=== PATIENT | male | born 1975 ===

== ENCOUNTER 2019-07-10 06:52 | Day surgery (SDC) | payer MEDICARE, OTHER ==
[2019-07-10] MEDS ORDERED: TRIAMCINOLONE ACETONIDE 40 MG/1 ML VIAL ONE ×3 (07:05→08:20)
[2019-07-10] MEDS ORDERED: IOHEXOL-240 MG , 50 ML VIAL IV ONE (07:06)
[2019-07-10] MEDS ORDERED: TRIAMCINOLONE ACETONIDE 50 MG/5 ML VIAL ONE (07:07)
[2019-07-10 07:35] LABS: BASOPHILS # (AUTO) 0.1 K/uL (0.0-8.0); BASOPHILS % (AUTO) 1.2 % (0.0-2.0); EOSINOPHILS # (AUTO) 0.2 K/uL (0.0-0.7); EOSINOPHILS % (AUTO) 2.3 % (0.0-7.0); HEMATOCRIT 37.2 % (36.7-47.1); HEMOGLOBIN 12.3 g/dL (12.5-16.3); LYMPHOCYTES # (AUTO) 2.8 K/uL (20.0-40.0); LYMPHOCYTES % (AUTO) 35.9 % (20.5-51.5); MEAN CORPUSCULAR HEMOGLOBIN 31.1 uug (23.8-33.4); MEAN CORPUSCULAR HGB CONC 33 g/dL (32.5-36.3); MONOCYTES # (AUTO) 0.6 K/uL (2.0-10.0); MONOCYTES % (AUTO) 8.4 % (0.0-11.0); NEUTROPHILS # (AUTO) 4.1 K/uL (1.8-8.9); NEUTROPHILS % (AUTO) 52.2 % (38.5-71.5); PLATELET COUNT (AUTO) 227 K/uL (152-348); RED BLOOD CELL COUNT(AUTO) 3.96 MIL/uL (4.06-5.63); WHITE BLOOD COUNT (AUTO) 7.8 K/uL (3.6-10.2)
[2019-07-10 07:42] LABS: POTASSIUM 3.8 mmol/L (3.5-5.1)
[2019-07-10] MEDS ORDERED: LIDOCAINE-MPF 2% 5 ML VIAL ONE ×2 (07:50→08:18)
[2019-07-10] MEDS ORDERED: BUPIVACAINE 0.25% 30 ML VIAL ONE (07:50)
[2019-07-10] MEDS ORDERED: LIDOCAINE-MPF 2% , 2 ML VIAL ONE (08:19)
[2019-07-10] MEDS ORDERED: MEPERIDINE 25 MG/1 ML DISP.SYRIN ONE (08:25)
== END 2019-07-10 09:45 | disposition home or self-care (01) ==
LOC: DS 06:52
PROVIDERS: ATTEND Anesthesiology Pain Medicine
DX: M46.1 Sacroiliitis, not elsewhere classified (principal); M70.61 Trochanteric bursitis, right hip; M70.62 Trochanteric bursitis, left hip; I10 Essential (primary) hypertension; J45.909 Unspecified asthma, uncomplicated; E11.9 Type 2 diabetes mellitus without complications; F15.90 Other stimulant use, unspecified, uncomplicated; Z98.890 Other specified postprocedural states; Z79.899 Other long term (current) drug therapy
CPT/HCPCS: 36415; 72100; 85025; 85730; A4663; J2175; J3301; J3490; Q9966

== ENCOUNTER 2019-08-25 06:41 | Day surgery (SDC) | payer MEDICARE, OTHER ==
[2019-08-25] MEDS ORDERED: PROPOFOL 200 MG/20 ML BOTTLE IV ONE (06:42)
[2019-08-25] MEDS ORDERED: LIDOCAINE-MPF 2% 5 ML VIAL MC ONE (06:42)
[2019-08-25] MEDS ORDERED: TRIAMCINOLONE ACETONIDE 40 MG/1 ML VIAL ONE (07:30)
[2019-08-25] MEDS ORDERED: LIDOCAINE HCL-MPF 1% 5 ML VIAL ONE ×2 (07:30→07:34)
[2019-08-25] MEDS ORDERED: BUPIVACAINE 0.25% 30 ML VIAL ONE (07:31)
[2019-08-25] MEDS ORDERED: IOHEXOL-240 MG , 50 ML VIAL IV ONE (07:34)
[2019-08-25] MEDS ORDERED: TRIAMCINOLONE ACETONIDE 50 MG/5 ML VIAL ONE (07:54)
== END 2019-08-25 09:00 | disposition home or self-care (01) ==
LOC: DS 06:41
PROVIDERS: ATTEND Anesthesiology Pain Medicine
DX: M46.1 Sacroiliitis, not elsewhere classified (principal); I10 Essential (primary) hypertension; J45.909 Unspecified asthma, uncomplicated; E11.9 Type 2 diabetes mellitus without complications; Z98.890 Other specified postprocedural states; F15.90 Other stimulant use, unspecified, uncomplicated
CPT/HCPCS: 20610; 82962; G0260; J3301 ×2; J3490 ×4; 72100; A4663; J7030; Q9966

== ENCOUNTER 2024-10-05 06:30 | Day surgery (SDC) | payer MEDICARE, OTHER ==
[2024-10-05] MEDS ORDERED: MIDAZOLAM HCL 2 MG/2 ML VIAL ONE (07:23)
[2024-10-05] MEDS ORDERED: FENTANYL CITRATE 100 MCG/2 ML AMPUL ONE (07:23)
[2024-10-05] MEDS ORDERED: IOHEXOL-240 MG , 50 ML VIAL IV ONE (07:28)
[2024-10-05] MEDS ORDERED: DEXAMETHASONE SOD PHOSPHATE 10 MG INJ ONE ×2 (07:28→07:54)
[2024-10-05] MEDS ORDERED: SODIUM BICARBONATE 4.2 % (NEUT) 5 ML VIAL ONE (07:28)
[2024-10-05] MEDS ORDERED: BUPIVACAINE 0.25% 30 ML VIAL ONE (07:29)
[2024-10-05] MEDS ORDERED: LIDOCAINE HCL 1% 20 ML VIAL ONE (07:29)
[2024-10-05] MEDS ORDERED: PROPOFOL 200 MG/20 ML BOTTLE ONE (07:46)
[2024-10-05] MEDS ORDERED: BETAMETHASONE ACET/BETAMET NA PH 30 MG/5 ML VIAL IM ONE (07:55)
[2024-10-05 09:14] VITALS: TEMP 97.3
== END 2024-10-05 09:20 | disposition home or self-care (01) ==
LOC: DS 06:30
PROVIDERS: ATTEND Anesthesiology Pain Medicine
DX: M54.16 Radiculopathy, lumbar region (principal); I10 Essential (primary) hypertension; M19.90 Unspecified osteoarthritis, unspecified site; E11.9 Type 2 diabetes mellitus without complications; Z79.899 Other long term (current) drug therapy; Z98.890 Other specified postprocedural states
CPT/HCPCS: 64483; 72020; 82962; J0702; J1100; J2250; J3010; J3490; J7040; 70030-TC; A4663; Q9966